=== PATIENT | male | born 1965 | race Caucasian/White ===

== ENCOUNTER 2020-04-02 12:25 | Emergency (ER) | payer OTHER ==
[~2020-04-02] VITALS: Ht 170.2 cm; Wt 77.1 kg
[2020-04-02] MEDS: CLONIDINE HCL 0.2 MG TAB PO ONE (12:52)
[2020-04-02] MEDS: LORAZEPAM 1 MG TAB PO PRN (12:52)
[2020-04-02] MEDS: ACETAMIN/BUTALBITAL/CAFFEINE TAB PO ONE (14:15)
[2020-04-02] MEDS ORDERED: HYDROCHLOROTHIA25 MG PO (14:36)
[2020-04-02 14:48] VITALS: BP 129/67
== END 2020-04-02 14:50 | disposition home or self-care (01) ==
LOC: ER 12:50
DX: I10 Essential (primary) hypertension (principal); F41.9 Anxiety disorder, unspecified; Z88.1 Allergy status to other antibiotic agents
CPT/HCPCS: 99282

== ENCOUNTER 2020-04-03 13:47 | Emergency (ER) | payer OTHER ==
[~2020-04-03] VITALS: Ht 170.2 cm; Wt 77.1 kg
[~2020-04-03 13:47] MED LIST: HYDROCHLOROTHIA25 MG PO
[2020-04-03] MEDS: METOCLOPRAMIDE HCL 10 MG/2ML VIAL IV ONE (14:13)
[2020-04-03] MEDS: ACETAMIN/BUTALBITAL/CAFFEINE TAB PO ONE (14:13)
[2020-04-03] MEDS: MAGNESIUM SULF 1GRAM/DEXTROSE 100 ML IV ONE (14:13)
[2020-04-03] MEDS: DIPHENHYDRAMINE HCL INJ 50 MG/ML VIAL IV ONE (14:13)
[2020-04-03 14:32] LABS: BASOPHILS # (AUTO) 0.1 (0.0-0.1); BASOPHILS % 0.9 % (0.0-1.0); EOSINOPHILS # (AUTO) 0.1 (0.0-0.4); EOSINOPHILS % 1.1 % (0.0-6.0); HEMATOCRIT 42.7 % (38.2-49.6); HEMOGLOBIN 13.2 g/dL (14.0-18.0); LYMPHOCYTES # (AUTO) 1.8 (1.0-3.2); LYMPHOCYTES % 19.5 % (18.0-39.1); MEAN CORPUSCULAR HGB CONC 30.9 g/dL (31-35); MEAN CORPUSCULAR VOLUME 84.1 fL (81-99); MONOCYTES # (AUTO) 0.8 (0.2-0.8); MONOCYTES % 8.8 % (4.4-11.3); NEUTROPHILS # (AUTO) 6.2 (2.1-6.9); NEUTROPHILS % 69.4 % (38.7-80.0); PLATELET COUNT 287 x10e3/uL (140-360); RED BLOOD COUNT 5.08 x10e6/uL (4.3-5.7); RED CELL DISTRIBUTION WIDTH 13.5 % (11.7-14.4)
[2020-04-03 14:55] LABS: ALANINE AMINOTRANSFERASE 15 IU/L (0-55); ALBUMIN 4.1 g/dL (3.5-5.0); ALBUMIN/GLOBULIN RATIO 1.4 (0.8-2.0); ALKALINE PHOSPHATASE 56 IU/L (40-150); ANION GAP 15.8 mmol/L (8-16); BLOOD UREA NITROGEN 12 mg/dL (7-26); BUN/CREATININE RATIO 10 (6-25); CALCIUM 8.7 mg/dL (8.4-10.2); CARBON DIOXIDE 26 mmol/L (22-29); CHLORIDE 103 mmol/L (98-107); CREATININE, SERUM 1.23 mg/dL (0.72-1.25); EST GLOMERULAR FILTRATION RATE > 60 ML/MIN (60-); GLUCOSE 100 mg/dL (74-118); POTASSIUM 3.8 mmol/L (3.5-5.1); SODIUM 141 mmol/L (136-145)
[2020-04-03] MEDS ORDERED: IOPAMIDOL 370 MG/ML 200 ML INFUS..BTL INJ ONE (15:10)
[2020-04-03] MEDS ORDERED: SODIUM CHLORIDE 0.9% 100 ML ONE (15:11)
[2020-04-03 15:49] VITALS: BP 163/71
== END 2020-04-03 15:51 | disposition home or self-care (01) ==
LOC: ER 14:12
DX: I10 Essential (primary) hypertension (principal); R51.9 Headache, unspecified; F41.9 Anxiety disorder, unspecified; F32.9 Major depressive disorder, single episode, unspecified
CPT/HCPCS: 36415; 70496; 80053; 85025; 99284; J1200; J2765; J3475; J7050; Q9967